=== PATIENT | female | born 1995 | race Caucasian/White ===

== ENCOUNTER 2025-03-16 14:33 | Outpatient (CLI) | payer OTHER, SELFPAY ==
[2025-03-18 13:27] LABS: HPV Source Cervix
[2025-03-18 21:48] LABS: HPV Genotype 16 by TMA Not Detected; HPV Genotype 18/45 by TMA Not Detected
[2025-03-25 09:44] LABS: Pap Test Screened Manually Done
== END 2025-03-16 14:34 | disposition home or self-care (01) ==
PROVIDERS: Visit Provider Registered Nurse
DX: Z12.4 Encounter for screening for malignant neoplasm of cervix (principal)
CPT/HCPCS: 87624; 87625; 88141; 88142; 88175